=== PATIENT | female | born 1990 | race Caucasian/White ===

== ENCOUNTER 2020-07-23 13:56 | Emergency (ER) | payer OTHER ==
[~2020-07-23] VITALS: Ht 152.4 cm; Wt 86.2 kg
[2020-07-23 14:08] VITALS: BP 141/94
--- NOTE | 2020-07-23 14:55 | NUR ---
PT SEEN SIPPING ON A DRINK IN LOBBY, NAD
[2020-07-23 15:00] LABS: BASOPHILS # (AUTO) 0.1 K/uL (0.00-0.22); BASOPHILS % (AUTO) 0.5 % (0.0-2.0); EOSINOPHILS # (AUTO) 0.3 K/uL (0-0.4); EOSINOPHILS % (AUTO) 2.6 % (0.0-4.0); HEMATOCRIT 37.7 % (36-48); HEMOGLOBIN 12.4 g/dL (12.0-16.0); LYMPHOCYTES # (AUTO) 2.3 K/uL (2.5-16.5); LYMPHOCYTES % (AUTO) 20.1 % (20.5-51.1); MEAN CORPUSCULAR HEMOGLOBIN 28 pg (27-31); MEAN CORPUSCULAR HGB CONC 33 g/dL (33-37); MEAN CORPUSCULAR VOLUME 84.7 fL (80-94); MONOCYTES # (AUTO) 0.8 K/uL (0.8-1.0); MONOCYTES % (AUTO) 7.2 % (1.7-9.3); NEUTROPHILS % (AUTO) 69.6 % (42.2-75.2); PLATELET COUNT (AUTO) 387 K/uL (140-450); RED BLOOD CELL COUNT(AUTO) 4.45 MIL/uL (4.20-5.40); RED CELL DISTRIBUTION WIDTH 14.7 % (11.6-13.7); WHITE BLOOD COUNT (AUTO) 11.6 K/uL (4.8-10.8)
--- NOTE | 2020-07-23 15:00 | NUR ---
FROM LOBBY TO U/S VIA W/C
--- NOTE | 2020-07-23 15:18 | NUR ---
PT FROM US TO BED 12
--- NOTE | 2020-07-23 15:33 | NUR ---
29 Y/O FEMALE C/O RUQ PAIN RAD TO BACK AND EPIGASTRIUM X 1 MONTH THAT IS WORSE AFTER EATING. + NAUSEA. DENIES ANY SOB/COUGH/FEVER. PAIN IS 7/10, SHARP IN CHARACTER AND UNRELIEVED BY TYLENOL. DENIES V/D. RESP EVEN AND UNLABORED. VSS.
[2020-07-23 16:03] LABS: ANION GAP 14.4 (8-16); CARBON DIOXIDE 25.5 mmol/L (21-32); CREATININE 0.7 mg/dL (0.6-1.3); POTASSIUM 3.9 mmol/L (3.5-5.1); TOTAL BILIRUBIN 0.3 mg/dL (0.0-1.0)
[2020-07-23 16:04] LABS: ALBUMIN 3.4 g/dL (3.4-5.0)
[2020-07-23 16:19] VITALS: BP 135/82
--- NOTE | 2020-07-23 16:20 | NUR ---
Patient discharged with v/s stable. Written and verbal after care instructions given and explained. Patient alert, oriented and verbalized understanding of instructions. Ambulatory with steady gait. All questions addressed prior to discharge. ID band removed. Patient advised to follow up with PMD. Rx of MOTRIN/TYLENOL given. Patient educated on indication of medication including possible reaction and side effects. Opportunity to ask questions provided and answered.
[2020-07-23 19:54] LABS: BILIRUBIN,URINE NEGATIVE (NEGATIVE); BLOOD, URINE TRACE-I (NEGATIVE); COLOR,URINE YELLOW (YELLOW); LEUKOCYTE ESTERASE ,URINE 1+ (NEGATIVE); NITRITE, URINE NEGATIVE (NEGATIVE); UGLUCOSE NEGATIVE (NEGATIVE)
[2020-07-23 19:57] LABS: APPEARANCE,URINE CLOUDY (CLEAR)
[2020-07-23 20:48] LABS: RBC,URINE 0-5 /HPF (0-5)
[2020-07-23 20:49] LABS: URINE AMORPHOUS URATE 3+ /HPF (None Seen)
== END 2020-07-23 16:20 | disposition home or self-care (01) ==
LOC: MED 13:56
DX: K80.50 Calculus of bile duct without cholangitis or cholecystitis without obstruction (principal)
CPT/HCPCS: 36415; 76705; 80053; 81001; 81025; 83690; 85025; 87086; 99284; Q0092